=== PATIENT | female | born 1960 | race Caucasian/White ===

== ENCOUNTER → 2016-09-06 | Outpatient (CLI) | payer OTHER | END | disposition home or self-care (01) | LOC: LABWHC1 09:18 | PROVIDERS: ATTEND Internal Medicine Endocrinology, Diabetes & Metabolism | DX: E05.90 Thyrotoxicosis, unspecified without thyrotoxic crisis or storm (principal) | CPT/HCPCS: 36415; 84439; 84443 ==

== ENCOUNTER → 2016-10-15 | Outpatient (CLI) | payer OTHER ==
--- NOTE | 2016-10-15 10:26 | US ---
EXAMINATION TYPE: US venous doppler duplex LE DATE OF EXAM: 10/15/2016 9:32 AM COMPARISON: NONE CLINICAL HISTORY: Leg Pain Swelling I82.401,I82.402 M79.661 M79.662. SIDE PERFORMED: Bilateral VESSELS IMAGED: External Iliac Vein (EIV) Common Femoral Vein Deep Femoral Vein Greater Saphenous Vein * Femoral Vein Popliteal Vein Small Saphenous Vein *-not seen on left Proximal Calf Veins (* superficial vessels) FINDINGS: There is spontaneous flow and normal compressibility of the deep venous structures bilatera nubia. IMPRESSION: 1. No diagnostic evidence of DVT
== END | disposition home or self-care (01) ==
LOC: RADUSWWP 09:29
PROVIDERS: ATTEND Orthopaedic Surgery
DX: R22.43 Localized swelling, mass and lump, lower limb, bilateral (principal); M79.661 Pain in right lower leg
CPT/HCPCS: 93970

== ENCOUNTER → 2016-10-23 | Outpatient (CLI) | payer OTHER ==
[2016-10-23 10:21] LABS: Basophils # (A) 0.1 k/uL (0-0.2); Basophils % (A) 1 %; CH 29.6; CHCM 30.8; Eosinophils # (A) 0.1 k/uL (0-0.7); Eosinophils % (A) 2 %; HCT 43.7 % (34.0-46.0); HDW 2.45; HGB 13.7 gm/dL (11.4-16.0); Hypochromasia Slight; Luc # (Auto) 0.23; Luc % (Auto) 3; Lymphocytes # (A) 1.7 k/uL (1.0-4.8); Lymphocytes % (A) 22 %; MCH 30.3 pg (25.0-35.0); MCHC 31.4 g/dL (31.0-37.0); MCV 96.6 fL (80.0-100.0); Mean Platelet Volume 7.2; Monocytes # (A) 0.3 k/uL (0-1.0); Monocytes % (A) 4 %; Neutrophils # (A) 5.3 k/uL (1.3-7.7); Neutrophils % (A) 68 %; RBC 4.52 m/uL (3.80-5.40); RDW 13.6 % (11.5-15.5); WBC 7.8 k/uL (3.8-10.6); WBC (Perox) 7.49
[2016-10-23 10:25] LABS: Prothrombin Time 10.4 sec (9.0-12.0)
[2016-10-23 10:41] LABS: ALT 53 U/L (9-52); AST 60 U/L (14-36); Alkaline Phosphatase 159 U/L (38-126); Anion Gap 11 mmol/L; Blood Urea Nitrogen 22 mg/dL (7-17); Calcium 10.1 mg/dL (8.4-10.2); Carbon Dioxide 25 mmol/L (22-30); Chloride 106 mmol/L (98-107); Glucose 81 mg/dL (74-99); Non-African American GFR(MDRD) >60 (>60 ml/min/1.73 sqM); Potassium 5.1 mmol/L (3.5-5.1); Sodium 142 mmol/L (137-145); Total Bilirubin 0.7 mg/dL (0.2-1.3); Total Protein 7.6 g/dL (6.3-8.2)
== END | disposition home or self-care (01) ==
LOC: LABWHC1 09:29
PROVIDERS: ATTEND Internal Medicine Gastroenterology
DX: K74.3 Primary biliary cirrhosis (principal)
CPT/HCPCS: 36415; 80053; 82105; 85025; 85610

== ENCOUNTER → 2016-11-14 | Outpatient (CLI) | payer OTHER ==
--- NOTE | 2016-11-18 08:05 | MM ---
Reason for exam: screening (asymptomatic). Last mammogram was performed 1 year ago. History: Patient is postmenopausal. Took hormonal contraceptives for 5 years. Taking estrogen for 6 months. Taking progesterone for 6 months. Taking other hormone for 6 months. Physical Findings: A clinical breast exam by your physician is recommended on an annual basis and results should be correlated with mammographic findings. MG 3D Screening Mammo W/Cad Bilateral CC and MLO view(s) were taken. Prior study comparison: November 05, 2015, bilateral MG 3d screening mammo w/cad. November 03, 2014, bilateral MG screening mammo w CAD. November 01, 2013, bilateral digital screening mammo w/CAD. There are scattered fibroglandular densities. No significant changes when compared with prior studies. ASSESSMENT: Negative, BI-RAD 1 RECOMMENDATION: Routine screening mammogram of both breasts in 1 year.
== END | disposition home or self-care (01) ==
LOC: RADMAMWWP 07:53
PROVIDERS: ATTEND Family Medicine
DX: Z12.31 Encounter for screening mammogram for malignant neoplasm of breast (principal)
CPT/HCPCS: 77063; G0202

== ENCOUNTER → 2016-11-14 | Outpatient (CLI) | payer OTHER ==
--- NOTE | 2016-11-14 09:09 | US ---
EXAMINATION TYPE: US liver DATE OF EXAM: 11/14/2016 8:17 AM COMPARISON: NONE CLINICAL HISTORY: K74.3 BILIARY CIRRHOSIS. ABD pain EXAM MEASUREMENTS: Liver Length: 11.0 cm Gallbladder Wall: 0.3 cm CBD: 0.5 cm Right Kidney: 9.6 x 3.7 x 4.1 cm Pt states she is not NPO, wanted to continue with exam knowing it may be limited Pancreas: Body wnl, head and tail obscured by overlying bowel gas Liver: Heterogeneous Gallbladder: Lumen appeared clear, GB slightly contracted, pt not NPO Evidence for sonographic Dugan's sign: No CBD: wnl Right Kidney: wnl IMPRESSION: NORMAL RIGHT UPPER QUADRANT ULTRASOUND.
== END | disposition home or self-care (01) ==
LOC: RADUSWWP 07:52
PROVIDERS: ATTEND Internal Medicine Gastroenterology
DX: K74.3 Primary biliary cirrhosis (principal)
CPT/HCPCS: 76705

== ENCOUNTER → 2016-12-16 | Outpatient (CLI) | payer OTHER | LOC: LABWHC1 17:08 | PROVIDERS: ATTEND Internal Medicine Endocrinology, Diabetes & Metabolism | DX: E05.90 Thyrotoxicosis, unspecified without thyrotoxic crisis or storm (principal) | CPT/HCPCS: 36415; 84439; 84443 ==

== ENCOUNTER → 2017-04-13 | Outpatient (CLI) | payer OTHER ==
[2017-04-13 08:00] LABS: Basophils % (A) 1 %; CH 31.5; CHCM 33.5; Eosinophils # (A) 0.2 k/uL (0-0.7); Eosinophils % (A) 5 %; HDW 2.44; HGB 13.5 gm/dL (11.4-16.0); Luc # (Auto) 0.12; Luc % (Auto) 3; Lymphocytes # (A) 1.6 k/uL (1.0-4.8); Lymphocytes % (A) 38 %; MCH 30.5 pg (25.0-35.0); MCHC 32.2 g/dL (31.0-37.0); MCV 94.7 fL (80.0-100.0); Mean Platelet Volume 6.9; Monocytes # (A) 0.3 k/uL (0-1.0); Monocytes % (A) 7 %; Neutrophils % (A) 46 %; RBC 4.43 m/uL (3.80-5.40); RDW 13.9 % (11.5-15.5); WBC 4.2 k/uL (3.8-10.6); WBC (Perox) 4.36
[2017-04-13 08:22] LABS: ALT 61 U/L (9-52); AST 70 U/L (14-36); Alkaline Phosphatase 159 U/L (38-126); Anion Gap 8 mmol/L; Blood Urea Nitrogen 15 mg/dL (7-17); Calcium 9.6 mg/dL (8.4-10.2); Carbon Dioxide 26 mmol/L (22-30); Chloride 107 mmol/L (98-107); Glucose 77 mg/dL (74-99); Non-African American GFR(MDRD) >60 (>60 ml/min/1.73 sqM); Potassium 5.1 mmol/L (3.5-5.1); Sodium 141 mmol/L (137-145); Total Bilirubin 0.4 mg/dL (0.2-1.3); Total Protein 7.4 g/dL (6.3-8.2)
== END | disposition home or self-care (01) ==
LOC: LABWHC1 06:53
PROVIDERS: ATTEND Internal Medicine Gastroenterology
DX: K74.3 Primary biliary cirrhosis (principal); E05.90 Thyrotoxicosis, unspecified without thyrotoxic crisis or storm
CPT/HCPCS: 36415; 80053; 82105; 84439; 84443; 84480; 85025; 85610

== ENCOUNTER → 2017-05-09 | Outpatient (CLI) | payer OTHER ==
[2017-05-09 10:42] LABS: Basophils % (A) 1 %; CHCM 32.7; Eosinophils # (A) 0.1 k/uL (0-0.7); Eosinophils % (A) 3 %; HCT 46.4 % (34.0-46.0); HDW 2.38; HGB 14.5 gm/dL (11.4-16.0); Luc % (Auto) 2; Lymphocytes # (A) 1.7 k/uL (1.0-4.8); Lymphocytes % (A) 40 %; MCH 30.7 pg (25.0-35.0); MCHC 31.2 g/dL (31.0-37.0); MCV 98.5 fL (80.0-100.0); Monocytes # (A) 0.3 k/uL (0-1.0); Monocytes % (A) 6 %; Neutrophils # (A) 2.1 k/uL (1.3-7.7); Neutrophils % (A) 48 %; RBC 4.71 m/uL (3.80-5.40); RDW 13.9 % (11.5-15.5); WBC 4.4 k/uL (3.8-10.6); WBC (Perox) 4.28
[2017-05-09 10:50] LABS: ALT 46 U/L (9-52); AST 47 U/L (14-36); Alkaline Phosphatase 169 U/L (38-126); Anion Gap 12 mmol/L; Blood Urea Nitrogen 18 mg/dL (7-17); Calcium 9.8 mg/dL (8.4-10.2); Carbon Dioxide 25 mmol/L (22-30); Chloride 107 mmol/L (98-107); Cholesterol 200 mg/dL (<200); Glucose 81 mg/dL (74-99); HDL Cholesterol 99 mg/dL (40-60); Non-African American GFR(MDRD) >60 (>60 ml/min/1.73 sqM); Potassium 4.5 mmol/L (3.5-5.1); Sodium 144 mmol/L (137-145); Total Bilirubin 0.5 mg/dL (0.2-1.3); Total Protein 8.1 g/dL (6.3-8.2)
== END | disposition home or self-care (01) ==
LOC: LABWHC1 09:45
PROVIDERS: ATTEND Physician Assistant Medical
DX: I10 Essential (primary) hypertension (principal); K74.3 Primary biliary cirrhosis; K21.9 Gastro-esophageal reflux disease without esophagitis
CPT/HCPCS: 36415; 80053; 80061; 84443; 85025

== ENCOUNTER → 2017-08-18 | Outpatient (CLI) | payer OTHER ==
--- NOTE | 2017-08-18 07:44 | US ---
EXAMINATION TYPE: US thyroid st tissue head/neck DATE OF EXAM: 08/18/2017 COMPARISON: NONE CLINICAL HISTORY: E05.90 THYROTOXICOSIS. GLAND SIZE: Right Lobe: 4.5 x 1.1 x 1.6 cm Overall Parenchyma: heterogenous Left Lobe: 4.8 x 1.4 x 1.4 cm Overall Parenchyma: heterogeneous Isthmus Thickness: 0.2 cm NODULES RIGHT: # of nodules measured on right: 0 LEFT: # of nodules measured on left: 0 ISTHMUS: # of nodules measured in the isthmus: 0 Bilateral neck scanned, no evidence of lymphadenopathy. IMPRESSION: Mild glandular heterogeneity without distinct nodule.
== END | disposition home or self-care (01) ==
LOC: RADUSWWP 06:55
PROVIDERS: ATTEND Internal Medicine Endocrinology, Diabetes & Metabolism
DX: E05.90 Thyrotoxicosis, unspecified without thyrotoxic crisis or storm (principal)
CPT/HCPCS: 76536

== ENCOUNTER → 2017-08-22 | Outpatient (CLI) | payer OTHER ==
[2017-08-22 10:14] LABS: T4, Free (Free Thyroxine) 0.92 ng/dL (0.78-2.19)
== END | disposition home or self-care (01) ==
LOC: LABWHC1 09:08
PROVIDERS: ATTEND Internal Medicine Endocrinology, Diabetes & Metabolism
DX: E05.90 Thyrotoxicosis, unspecified without thyrotoxic crisis or storm (principal)
CPT/HCPCS: 36415; 84439; 84443; 84480

== ENCOUNTER → 2017-10-15 | Outpatient (CLI) | payer OTHER ==
[2017-10-15 15:13] LABS: HCT 40.4 % (34.0-46.0); HGB 13.2 gm/dL (11.4-16.0); MCH 29.9 pg (25.0-35.0); MCHC 32.6 g/dL (31.0-37.0); MCV 91.6 fL (80.0-100.0); Mean Platelet Volume 6.9; Platelet Count 331 k/uL (150-450); RBC 4.41 m/uL (3.80-5.40); RDW 12.9 % (11.5-15.5); WBC 7.3 k/uL (3.8-10.6)
[2017-10-15 15:21] LABS: Prothrombin Time 9.6 sec (9.0-12.0)
[2017-10-15 15:25] LABS: ALT 35 U/L (9-52); AST 43 U/L (14-36); Albumin 4.5 g/dL (3.5-5.0); Alkaline Phosphatase 140 U/L (38-126); Anion Gap 8 mmol/L; Blood Urea Nitrogen 22 mg/dL (7-17); Calcium 10.3 mg/dL (8.4-10.2); Carbon Dioxide 29 mmol/L (22-30); Chloride 102 mmol/L (98-107); Glucose 79 mg/dL (74-99); Potassium 4.5 mmol/L (3.5-5.1); Sodium 139 mmol/L (137-145); Total Bilirubin 0.4 mg/dL (0.2-1.3); Total Protein 7.9 g/dL (6.3-8.2)
== END | disposition home or self-care (01) ==
LOC: LABWHC1 14:51
PROVIDERS: ATTEND Internal Medicine Gastroenterology
DX: K74.3 Primary biliary cirrhosis (principal)
CPT/HCPCS: 36415; 80053; 82105; 85027; 85610

== ENCOUNTER → 2017-11-19 | Outpatient (CLI) | payer OTHER ==
[2017-11-19 08:33] LABS: T4, Free (Free Thyroxine) 0.92 ng/dL (0.78-2.19)
== END | disposition home or self-care (01) ==
LOC: LABWHC1 07:09
PROVIDERS: ATTEND Internal Medicine Endocrinology, Diabetes & Metabolism
DX: E05.90 Thyrotoxicosis, unspecified without thyrotoxic crisis or storm (principal)
CPT/HCPCS: 36415; 84439; 84443; 84480

== ENCOUNTER → 2018-02-26 | Outpatient (CLI) | payer OTHER ==
[2018-02-26 10:05] LABS: T4, Free (Free Thyroxine) 0.87 ng/dL (0.78-2.19)
== END | disposition home or self-care (01) ==
LOC: LABWHC1 08:47
PROVIDERS: ATTEND Internal Medicine Endocrinology, Diabetes & Metabolism
DX: E05.90 Thyrotoxicosis, unspecified without thyrotoxic crisis or storm (principal)
CPT/HCPCS: 36415; 84439; 84443; 84480

== ENCOUNTER → 2018-04-17 | Outpatient (CLI) | payer OTHER ==
[2018-04-17 10:35] LABS: HCT 42.3 % (34.0-46.0); HGB 13.5 gm/dL (11.4-16.0); MCH 29.7 pg (25.0-35.0); MCHC 31.8 g/dL (31.0-37.0); MCV 93.5 fL (80.0-100.0); Platelet Count 346 k/uL (150-450); RBC 4.52 m/uL (3.80-5.40); RDW 12.9 % (11.5-15.5); WBC 5.1 k/uL (3.8-10.6)
[2018-04-17 10:44] LABS: ALT 32 U/L (9-52); AST 45 U/L (14-36); Albumin 4.3 g/dL (3.5-5.0); Alkaline Phosphatase 136 U/L (38-126); Anion Gap 10 mmol/L; Blood Urea Nitrogen 23 mg/dL (7-17); Calcium 10.1 mg/dL (8.4-10.2); Carbon Dioxide 26 mmol/L (22-30); Chloride 105 mmol/L (98-107); Glucose 88 mg/dL (74-99); Potassium 4.9 mmol/L (3.5-5.1); Sodium 141 mmol/L (137-145); Total Bilirubin 0.5 mg/dL (0.2-1.3); Total Protein 7.6 g/dL (6.3-8.2)
== END ==
LOC: LABWHC1 09:51
PROVIDERS: ATTEND Internal Medicine Gastroenterology
DX: K74.3 Primary biliary cirrhosis (principal)
CPT/HCPCS: 36415; 80053; 82105; 85027; 85610

== ENCOUNTER → 2018-05-11 | Outpatient (CLI) | payer OTHER ==
[2018-05-11 12:51] LABS: Basophils % (A) 1 %; Eosinophils # (A) 0.2 k/uL (0-0.7); Eosinophils % (A) 3 %; HCT 39.7 % (34.0-46.0); Lymphocytes # (A) 1.8 k/uL (1.0-4.8); Lymphocytes % (A) 28 %; MCH 30.4 pg (25.0-35.0); MCHC 32.7 g/dL (31.0-37.0); MCV 92.9 fL (80.0-100.0); Mean Platelet Volume 6.7; Monocytes # (A) 0.4 k/uL (0-1.0); Monocytes % (A) 6 %; Neutrophils # (A) 3.9 k/uL (1.3-7.7); Neutrophils % (A) 61 %; Platelet Count 335 k/uL (150-450); RBC 4.27 m/uL (3.80-5.40); RDW 13.5 % (11.5-15.5); WBC 6.4 k/uL (3.8-10.6)
== END ==
LOC: LABWHC1 10:47
PROVIDERS: ATTEND Physician Assistant Medical
DX: I10 Essential (primary) hypertension (principal); E66.9 Obesity, unspecified; E05.90 Thyrotoxicosis, unspecified without thyrotoxic crisis or storm
CPT/HCPCS: 36415; 80061; 84443; 85025

== ENCOUNTER → 2018-06-23 | Outpatient (CLI) | payer OTHER ==
[2018-06-23 13:02] LABS: T4, Free (Free Thyroxine) 1.1 ng/dL (0.80-1.80)
== END | disposition home or self-care (01) ==
LOC: LABWHC1 07:07
PROVIDERS: ATTEND Internal Medicine Endocrinology, Diabetes & Metabolism
DX: E05.00 Thyrotoxicosis with diffuse goiter without thyrotoxic crisis or storm (principal)
CPT/HCPCS: 36415; 84439; 84443; 84480

== ENCOUNTER → 2018-10-15 | Outpatient (CLI) | payer OTHER ==
[2018-10-15 10:40] LABS: HCT 39.9 % (34.0-46.0); MCH 30.5 pg (25.0-35.0); MCHC 32.6 g/dL (31.0-37.0); MCV 93.3 fL (80.0-100.0); Platelet Count 323 k/uL (150-450); RBC 4.28 m/uL (3.80-5.40); RDW 12.9 % (11.5-15.5); WBC 5.4 k/uL (3.8-10.6)
[2018-10-15 16:57] LABS: Albumin 4.2 g/dL (3.80-4.90); Albumin/Globulin Ratio 1.68 (1.60-3.17); Anion Gap 11.8 mmol/L (4.00-12.00); Calcium 9.5 mg/dL (8.7-10.3); Carbon Dioxide 27.2 mmol/L (21.6-31.8); Globulin 2.5 g/dL (1.6-3.3); Potassium 4.3 mmol/L (3.5-5.5); Total Bilirubin 0.4 mg/dL (0.2-1.2); Total Protein 6.7 g/dL (6.2-8.2)
== END | disposition home or self-care (01) ==
LOC: LABWHC1 09:44
PROVIDERS: ATTEND Internal Medicine Gastroenterology
DX: K74.3 Primary biliary cirrhosis (principal)
CPT/HCPCS: 36415; 80053; 82105; 85027

== ENCOUNTER → 2018-11-26 | Outpatient (CLI) | payer OTHER ==
[2018-11-26 18:44] LABS: T4, Free (Free Thyroxine) 1.1 ng/dL (0.80-1.80)
== END | disposition home or self-care (01) ==
LOC: LABWHC1 12:22
PROVIDERS: ATTEND Internal Medicine Endocrinology, Diabetes & Metabolism
DX: E05.00 Thyrotoxicosis with diffuse goiter without thyrotoxic crisis or storm (principal)
CPT/HCPCS: 36415; 84439; 84443; 84480

== ENCOUNTER → 2018-12-17 | Outpatient (CLI) | payer OTHER ==
--- NOTE | 2018-12-21 13:47 | MM ---
Reason for exam: screening (asymptomatic). Last mammogram was performed 1 year and 1 month ago. History: Patient is postmenopausal. Took hormonal contraceptives for 5 years. Took estrogen for 6 months. Took progesterone for 6 months. Taking other hormone for 6 months. Physical Findings: A clinical breast exam by your physician is recommended on an annual basis and results should be correlated with mammographic findings. MG 3D Screening Mammo W/Cad Bilateral CC and MLO view(s) were taken. Prior study comparison: November 19, 2017, bilateral MG 3d screening mammo w/cad. November 14, 2016, bilateral MG 3d screening mammo w/cad. There are scattered fibroglandular densities. No significant changes when compared with prior studies. ASSESSMENT: Benign, BI-RAD 2 RECOMMENDATION: Routine screening mammogram of both breasts in 1 year.
== END | disposition home or self-care (01) ==
LOC: RADMAMWWP 07:04
PROVIDERS: ATTEND Family Medicine
DX: Z12.31 Encounter for screening mammogram for malignant neoplasm of breast (principal)
CPT/HCPCS: 77063; 77067

== ENCOUNTER → 2019-04-09 | Outpatient (CLI) | payer OTHER ==
[2019-04-09 09:56] LABS: Basophils # (A) 0.1 k/uL (0-0.2); Basophils % (A) 1 %; Eosinophils # (A) 0.2 k/uL (0-0.7); Eosinophils % (A) 4 %; HGB 13.1 gm/dL (11.4-16.0); Lymphocytes # (A) 2.1 k/uL (1.0-4.8); Lymphocytes % (A) 35 %; MCH 29.6 pg (25.0-35.0); MCV 92.3 fL (80.0-100.0); Mean Platelet Volume 6.9; Monocytes # (A) 0.3 k/uL (0-1.0); Monocytes % (A) 5 %; Neutrophils # (A) 3.1 k/uL (1.3-7.7); Neutrophils % (A) 53 %; Platelet Count 328 k/uL (150-450); RBC 4.44 m/uL (3.80-5.40); RDW 14.4 % (11.5-15.5); WBC 5.8 k/uL (3.8-10.6)
[2019-04-09 10:03] LABS: INR 0.9 (<1.2); Prothrombin Time 9.7 sec (9.0-12.0)
[2019-04-09 16:16] LABS: Alpha Fetoprotein, Tumor Mkr 5.5 ng/mL (0.0-7.9)
[2019-04-09 16:25] LABS: African American GFR (CKD) 94.9 (60.0-200.0); Albumin 4.2 g/dL (3.80-4.90); Albumin/Globulin Ratio 1.68 (1.60-3.17); Anion Gap 8.5 mmol/L (4.00-12.00); BUN/Creat Ratio 21.25 Ratio (12.00-20.00); Calcium 9.6 mg/dL (8.7-10.3); Carbon Dioxide 29.5 mmol/L (21.6-31.8); Globulin 2.5 g/dL (1.6-3.3); Potassium 4.3 mmol/L (3.5-5.5); T4, Free (Free Thyroxine) 0.8 ng/dL (0.80-1.80); Total Bilirubin 0.4 mg/dL (0.2-1.2); Total Protein 6.7 g/dL (6.2-8.2)
== END | disposition home or self-care (01) ==
LOC: LABWHC1 09:20
PROVIDERS: ATTEND Internal Medicine Gastroenterology
DX: E05.00 Thyrotoxicosis with diffuse goiter without thyrotoxic crisis or storm (principal); K74.3 Primary biliary cirrhosis
CPT/HCPCS: 36415; 80053; 82105; 84439; 84443; 84480; 85025; 85610

== ENCOUNTER → 2019-05-21 | Outpatient (CLI) | payer OTHER ==
[2019-05-21 09:07] LABS: Basophils # (A) 0.1 k/uL (0-0.2); Basophils % (A) 1 %; Eosinophils # (A) 0.2 k/uL (0-0.7); Eosinophils % (A) 3 %; HCT 42.2 % (34.0-46.0); Lymphocytes % (A) 37 %; MCH 30.5 pg (25.0-35.0); MCHC 33.1 g/dL (31.0-37.0); MCV 92.3 fL (80.0-100.0); Mean Platelet Volume 5.7; Monocytes # (A) 0.3 k/uL (0-1.0); Monocytes % (A) 6 %; Neutrophils # (A) 2.7 k/uL (1.3-7.7); Neutrophils % (A) 51 %; Platelet Count 348 k/uL (150-450); RBC 4.58 m/uL (3.80-5.40); RDW 12.9 % (11.5-15.5); WBC 5.3 k/uL (3.8-10.6)
[2019-05-21 16:14] LABS: African American GFR (CKD) 94.2 (60.0-200.0); Albumin 4.4 g/dL (3.80-4.90); Albumin/Globulin Ratio 1.83 (1.60-3.17); Anion Gap 9.2 mmol/L (4.00-12.00); BUN/Creat Ratio 17.5 Ratio (12.00-20.00); Calcium 9.7 mg/dL (8.7-10.3); Carbon Dioxide 29.8 mmol/L (21.6-31.8); Chol/HDL Ratio 2.31; Globulin 2.4 g/dL (1.6-3.3); LDL Cholesterol,Calculated 102.4 mg/dL (0.0-131.0); Potassium 4.7 mmol/L (3.5-5.5); Total Bilirubin 0.5 mg/dL (0.2-1.2); Total Protein 6.8 g/dL (6.2-8.2); VLDL Calculation 11.6 mg/dL (5.00-40.00)
== END | disposition home or self-care (01) ==
LOC: LABWHC1 08:47
PROVIDERS: ATTEND Family Medicine
DX: I10 Essential (primary) hypertension (principal); K21.9 Gastro-esophageal reflux disease without esophagitis; K74.3 Primary biliary cirrhosis; E05.90 Thyrotoxicosis, unspecified without thyrotoxic crisis or storm; E55.9 Vitamin D deficiency, unspecified
CPT/HCPCS: 36415; 80053; 80061; 82306; 84443; 85025

== ENCOUNTER → 2019-06-20 | Outpatient (CLI) | payer OTHER ==
--- NOTE | 2019-06-20 08:59 | US ---
EXAMINATION TYPE: US liver DATE OF EXAM: 06/20/2019 COMPARISON: 11/14/2016 CLINICAL HISTORY: 59-year-old female K74.3 PRIMARY BILIARY CIRRHOSIS. NPO, No pain TECHNIQUE: Multiple sonographic images of the right upper quadrant are obtained. FINDINGS: EXAM MEASUREMENTS: Liver Length: 14.2 cm Gallbladder Wall: 0.2 cm CBD: 0.5 cm Right Kidney: 9.4 x 4.6 x 4.1 cm [employer]employment [employer] Adjudicator notes:Limited due to overlying bowel gas Pancreas: Tail obscured by overlying bowel gas. Visualized portions show no gross abnormal mobility. Liver: Very slightly heterogeneous. No focal lesion seen. Gallbladder: wnl Evidence for sonographic Dugan's sign: neg CBD: wnl Right Kidney: Mild pelviectasis or a small 1.1 cm parapelvic cyst. No hydronephrosis. IMPRESSION: 1. Some limitations due to overlying bowel gas. 2. Slightly heterogeneous appearance to the liver. No focal lesion seen. 3. No cholelithiasis or biliary ductal dilatation.
== END ==
LOC: RADUSWWP 07:07
PROVIDERS: ATTEND Internal Medicine Gastroenterology
DX: R93.2 Abnormal findings on diagnostic imaging of liver and biliary tract (principal)
CPT/HCPCS: 76705

== ENCOUNTER → 2019-08-20 | Outpatient (CLI) | payer OTHER | END | disposition home or self-care (01) | LOC: LABWHC1 09:09 | PROVIDERS: ATTEND Internal Medicine Endocrinology, Diabetes & Metabolism | DX: E05.00 Thyrotoxicosis with diffuse goiter without thyrotoxic crisis or storm (principal) | CPT/HCPCS: 36415; 84439; 84443; 84480 ==

== ENCOUNTER → 2020-01-09 | Outpatient (CLI) | payer OTHER ==
[2020-01-09 08:06] LABS: Basophils % (A) 1 %; Eosinophils # (A) 0.2 k/uL (0-0.7); Eosinophils % (A) 3 %; HCT 41.8 % (34.0-46.0); HGB 13.3 gm/dL (11.4-16.0); Lymphocytes # (A) 1.9 k/uL (1.0-4.8); Lymphocytes % (A) 32 %; MCH 29.3 pg (25.0-35.0); MCHC 31.9 g/dL (31.0-37.0); MCV 91.7 fL (80.0-100.0); Monocytes # (A) 0.3 k/uL (0-1.0); Monocytes % (A) 5 %; Neutrophils # (A) 3.5 k/uL (1.3-7.7); Neutrophils % (A) 58 %; Platelet Count 320 k/uL (150-450); RBC 4.55 m/uL (3.80-5.40); RDW 13.8 % (11.5-15.5)
[2020-01-09 08:09] LABS: INR 0.9 (<1.2); Prothrombin Time 9.4 sec (9.0-12.0)
[2020-01-09 11:50] LABS: African American GFR (CKD) 94.2 (60.0-200.0); Albumin 4.1 g/dL (3.80-4.90); Albumin/Globulin Ratio 1.52 (1.60-3.17); Anion Gap 7.5 mmol/L (4.00-12.00); Calcium 9.4 mg/dL (8.7-10.3); Carbon Dioxide 27.5 mmol/L (21.6-31.8); Globulin 2.7 g/dL (1.6-3.3); Non-African American GFR(CKD) 81.3 (60.0-200.0); Potassium 4.2 mmol/L (3.5-5.5); Total Bilirubin 0.5 mg/dL (0.3-1.2); Total Protein 6.8 g/dL (6.2-8.2)
== END | disposition home or self-care (01) ==
LOC: LABWHC1 07:07
PROVIDERS: ATTEND Nurse Practitioner
DX: K74.3 Primary biliary cirrhosis (principal)
CPT/HCPCS: 36415; 80053; 82105; 85025; 85610

== ENCOUNTER → 2020-01-26 | Outpatient (CLI) | payer OTHER ==
[2020-01-26 07:47] LABS: Basophils % (A) 1 %; Eosinophils # (A) 0.3 k/uL (0-0.7); Eosinophils % (A) 4 %; HCT 44.5 % (34.0-46.0); HGB 14.1 gm/dL (11.4-16.0); Lymphocytes # (A) 2.1 k/uL (1.0-4.8); Lymphocytes % (A) 36 %; MCH 28.8 pg (25.0-35.0); MCHC 31.6 g/dL (31.0-37.0); MCV 91.1 fL (80.0-100.0); Mean Platelet Volume 6.7; Monocytes # (A) 0.3 k/uL (0-1.0); Monocytes % (A) 6 %; Neutrophils % (A) 51 %; Platelet Count 322 k/uL (150-450); RBC 4.89 m/uL (3.80-5.40); RDW 13.8 % (11.5-15.5); WBC 5.9 k/uL (3.8-10.6)
[2020-01-26 11:32] LABS: ALT 33 U/L (8-44); AST 44 U/L (13-35); African American GFR (CKD) 81.7 (60.0-200.0); Albumin/Globulin Ratio 1.43 (1.60-3.17); Alkaline Phosphatase 171 U/L (41-126); BUN/Creat Ratio 12.22 Ratio (12.00-20.00); Calcium 9.6 mg/dL (8.7-10.3); Carbon Dioxide 32.5 mmol/L (21.6-31.8); Chloride 101 mmol/L (96-109); Chol/HDL Ratio 2.11; Cholesterol 188 mg/dL (0-200); Glucose 93 mg/dL (70-110); Non-African American GFR(CKD) 70.5 (60.0-200.0); Potassium 4.6 mmol/L (3.5-5.5); Sodium 141 mmol/L (135-145); Total Bilirubin 0.5 mg/dL (0.2-1.2); Total Protein 7.3 g/dL (6.2-8.2); Triglycerides <50.0 mg/dL (0.0-149.0)
== END | disposition home or self-care (01) ==
LOC: LABWHC1 07:03
PROVIDERS: ATTEND Physician Assistant Medical
DX: I10 Essential (primary) hypertension (principal); K21.9 Gastro-esophageal reflux disease without esophagitis; K74.3 Primary biliary cirrhosis; E05.90 Thyrotoxicosis, unspecified without thyrotoxic crisis or storm; E55.9 Vitamin D deficiency, unspecified
CPT/HCPCS: 36415; 80053; 80061; 82306; 84443; 85025

== ENCOUNTER 2020-01-27 10:40 | Day surgery (SDC) | payer OTHER ==
[2020-01-25 15:11] VITALS: BMI 35.4
[~2020-01-27 10:40] MED LIST: LIDOCAINE 1% (10MG/ML) FOR IV START INTRADERMA PRN
[2020-01-27 11:07] VITALS: RESP 18; TEMP 98.3
[2020-01-27] MEDS: LACTATED RINGERS 1,000 ML IV SCH ×2 (11:22→11:25)
[2020-01-27] MEDS ORDERED: PROPOFOL 10 MG/ML 20 ML VIAL IV ONE (11:26)
[2020-01-27] MEDS ORDERED: LIDOCAINE 1% INJ 10MG/ML (20 ML MDV) ONE (11:26)
--- NOTE | 2020-01-27 11:37 | P.PCN ---
Date of Procedure: 01/27/20 Procedure(s) Performed: BRIEF HISTORY: Patient is a 59-year-old, pleasant, white female scheduled for an upper endoscopy as a part of evaluation of GERD/intermittent dysphagia to solids as well as screening for esophageal varices for an underlying history of primary biliary cholangitis. PROCEDURE PERFORMED: Esophagogastroduodenoscopy with biopsy. PREOPERATIVE DIAGNOSIS: GERD/dysphagia/history of PBC. IV sedation per anesthesia. PROCEDURE: After informed consent was obtained, the patient was brought into the endoscopy unit. IV sedation was administered by Anesthesia under continuous monitoring. Initially the Olympus GIF-140 video endoscope was inserted into the mouth. Esophagus intubated without any difficulty. It was gradually advanced into the stomach and duodenum and carefully examined. The bulb and the second part of the duodenum appeared normal. The scope at this time was withdrawn to the stomach, adequately insufflated with air, and upon careful examination, mucosa of the antrum, had scattered erosions and biopsies were done from this area. Small sliding type hiatal hernia noted. The body, cardia and the fundus appeared normal. The scope was then withdrawn into the esophagus. The GE junction was located at 37 cm from the incisors. The esophagus appeared normal. There were no erosions or ulcerations seen and the patient tolerated the procedure well. IMPRESSION: 1. Small sliding-type valve and the. 2. Antral erosive gastritis. 3. Widely patent distal esophageal Schatzki's ring. RECOMMENDATIONS: The findings of this examination were discussed with the patient as well as a family. She was advised to follow with the biopsy results. She will use [id number] H2 blockers as needed for reflux symptoms..
[2020-01-27 11:58] VITALS: BP 126/78; PULSE 75
== END 2020-01-27 12:10 | disposition home or self-care (01) ==
LOC: ORWHC2ENDO 10:40
PROVIDERS: ATTEND Internal Medicine Gastroenterology
DX: K29.50 Unspecified chronic gastritis without bleeding (principal); K22.2 Esophageal obstruction; K44.9 Diaphragmatic hernia without obstruction or gangrene; K21.9 Gastro-esophageal reflux disease without esophagitis; K25.9 Gastric ulcer, unspecified as acute or chronic, without hemorrhage or perforation; I10 Essential (primary) hypertension; K74.3 Primary biliary cirrhosis; Z79.899 Other long term (current) drug therapy; Z88.2 Allergy status to sulfonamides; Z88.0 Allergy status to penicillin
CPT/HCPCS: 88305; 43239; J2001; J2704

== ENCOUNTER → 2020-05-14 | Outpatient (CLI) | payer OTHER ==
--- NOTE | 2020-05-14 11:47 | XR ---
EXAMINATION TYPE: XR cervical spine comp DATE OF EXAM: 05/14/2020 COMPARISON: NONE HISTORY: Pain TECHNIQUE: Four views are submitted. FINDINGS: The odontoid is intact. There are no compression deformities. The prevertebral soft tissue structur es are within normal limits. There is degenerative change involving the lower cervical spine with mo derate changes at C4-5 and severe changes at C5-6 and C6-C7. Foraminal encroachment at these 2 levels suspected. Loss of the normal cervical lordosis. IMPRESSION: 1. Multilevel severe degenerative disc disease with facet arthropathy and foraminal encroachment susp ected at C5-6 and C6-C7. Correlate with MRI as clinically warranted..
== END | disposition home or self-care (01) ==
LOC: RADXRYALE 11:14
PROVIDERS: ATTEND Physician Assistant Medical
DX: M50.322 Other cervical disc degeneration at C5-C6 level (principal); M47.812 Spondylosis without myelopathy or radiculopathy, cervical region
CPT/HCPCS: 72050

== ENCOUNTER → 2020-06-13 | Outpatient (CLI) | payer OTHER ==
--- NOTE | 2020-06-14 05:51 | BD ---
EXAMINATION TYPE: Axial Bone Density DATE OF EXAM: 06/13/2020 COMPARISON: NONE CLINICAL HISTORY: 60 YR OLD FEMALE.....ICD-10 CODE: E21.3 HYPERPARATHYROID, Height: 62.5 Weight: 222 FRAX RISK QUESTIONS: History of Fracture in Adulthood: YES RISK FACTORS HISTORY OF: History of Wrist Fracture: LT WRIST AN ADULT Postmenopausal woman: YES AT 52 YRS OLD Hyperparathyroidism: YES Adrenal Insufficiency: NO MEDICATIONS: Thyroid Medications: STOPPED MAR 2020 Additional Medications: BP MEDS, REFLUX MEDS, VIT D Additional History: HYPERTENSION, REFLUX EXAM MEASUREMENTS: Bone mineral densitometry was performed using the [email or web address] System. Bone mineral density as measured about the Lumbar spine is: ----- L1-L4(G/cm2): 1.372 T Score Values are as follows: ----- L1: 1.3 ----- L2: 2.4 ----- L3: 2.3 ----- L4: 0.7 ----- L1-L4: 1.6 Bone mineral density FIRST BONE DENSITY AT [facility] Bone mineral density about the R hip (g/cm2): 1.179 Bone mineral density about the L hip (g/cm2): 1.201 T Score values are as follows: -----R Neck: 1.0 -----L Neck: 0.9 -----R Total: 1.4 -----L Total: 1.5 Bone mineral density FIRST BONE DENSITY AT [facility] FRAX%s: THERE IS A 8.2% CHANCE FOR A MAJOR OSTEOPOROTIC FX AND A 0.1% FOR HIP......PROBABILITY FOR FX IN 10 YRS TIME IMPRESSION: Normal (Values between +1 and -1 indicate normal bone mass). Consider repeating this study in 5 year s or sooner if there is some new clinical indication. NOTE: T-SCORE=SD OF THE YOUNG ADULT MEAN.
== END | disposition home or self-care (01) ==
LOC: RADMAMWWP 07:06
PROVIDERS: ATTEND Family Medicine
DX: E21.3 Hyperparathyroidism, unspecified (principal)
CPT/HCPCS: 77080

== ENCOUNTER → 2020-06-13 | Outpatient (CLI) | payer OTHER ==
--- NOTE | 2020-06-13 07:50 | US ---
EXAMINATION TYPE: US liver DATE OF EXAM: 06/13/2020 COMPARISON: 06/20/2019 CLINICAL HISTORY: 60-year-old female K74.3 Primary Biliary cholangitis. Patient states no symptoms or abdominal surgeries. TECHNIQUE: Multiple sonographic images of the right upper quadrant are obtained. FINDINGS: EXAM MEASUREMENTS: Liver Length: 14.5 cm Gallbladder Wall: 0.2 cm CBD: 0.4 cm Right Kidney: 9.0 x 3.[address] Department notes:Difficult and limited study due to patient body habitus Pancreas: Suboptimal visualization of the pancreatic tail due to shadowing from bowel gas. Visualize d portions show no gross abnormality. Liver: heterogeneous echotexture. No focal lesion seen. Gallbladder: wnl Evidence for sonographic Dugan's sign: no CBD: visualized portions wnl, limited by overlying bowel gas Right Kidney: wnl IMPRESSION: Technically difficult exam. Heterogeneous liver parenchyma suggests underlying hepatocellular disease . No focal lesion clearly identified. No biliary ductal dilatation.
--- NOTE | 2020-06-14 11:21 | MM ---
Reason for exam: screening (asymptomatic). Last mammogram was performed 1 year and 6 months ago. History: Patient is postmenopausal. Took hormonal contraceptives for 5 years. Took estrogen for 6 months. Took progesterone for 6 months. Taking other hormone for 6 months. Physical Findings: A clinical breast exam by your physician is recommended on an annual basis and results should be correlated with mammographic findings. MG 3D Screening Mammo W/Cad Bilateral CC and MLO view(s) were taken. XCCL view(s) were taken of the left breast. Prior study comparison: December 17, 2018, bilateral MG 3d screening mammo w/cad. November 19, 2017, bilateral MG 3d screening mammo w/cad. There are scattered fibroglandular densities. No significant changes when compared with prior studies. ASSESSMENT: Benign, BI-RAD 2 RECOMMENDATION: Routine screening mammogram of both breasts in 1 year.
== END | disposition home or self-care (01) ==
LOC: RADUSWWP 07:03
PROVIDERS: ATTEND Internal Medicine Gastroenterology
DX: Z12.31 Encounter for screening mammogram for malignant neoplasm of breast (principal); R93.2 Abnormal findings on diagnostic imaging of liver and biliary tract; K74.3 Primary biliary cirrhosis
CPT/HCPCS: 76705; 77063; 77067

== ENCOUNTER → 2020-06-15 | Outpatient (CLI) | payer OTHER ==
[2020-06-15 07:40] LABS: Basophils # (A) 0.1 k/uL (0-0.2); Basophils % (A) 1 %; Eosinophils # (A) 0.3 k/uL (0-0.7); Eosinophils % (A) 5 %; HCT 41.7 % (34.0-46.0); HGB 13.8 gm/dL (11.4-16.0); Lymphocytes # (A) 1.7 k/uL (1.0-4.8); Lymphocytes % (A) 32 %; MCH 29.1 pg (25.0-35.0); MCHC 33.1 g/dL (31.0-37.0); MCV 87.8 fL (80.0-100.0); Mean Platelet Volume 6.6; Monocytes # (A) 0.3 k/uL (0-1.0); Monocytes % (A) 6 %; Neutrophils % (A) 54 %; Platelet Count 341 k/uL (150-450); RBC 4.74 m/uL (3.80-5.40); RDW 13.3 % (11.5-15.5); WBC 5.5 k/uL (3.8-10.6)
[2020-06-15 11:08] LABS: T4, Free (Free Thyroxine) 0.9 ng/dL (0.80-1.80)
[2020-06-15 11:47] LABS: African American GFR (CKD) 81.1 (60.0-200.0); Albumin 4.1 g/dL (3.80-4.90); Albumin/Globulin Ratio 1.41 (1.60-3.17); Anion Gap 10.2 mmol/L (4.00-12.00); BUN/Creat Ratio 16.67 Ratio (12.00-20.00); Calcium 9.6 mg/dL (8.7-10.3); Carbon Dioxide 28.8 mmol/L (21.6-31.8); Globulin 2.9 g/dL (1.6-3.3); Potassium 3.7 mmol/L (3.5-5.5); Total Bilirubin 0.4 mg/dL (0.2-1.2)
[2020-06-16 04:08] LABS: INR 0.93 (0.90-1.11); Prothrombin Time 10.1 sec (9.9-11.9)
== END | disposition home or self-care (01) ==
LOC: LABWHC1 07:04
PROVIDERS: ATTEND Nurse Practitioner
DX: K74.3 Primary biliary cirrhosis (principal)
CPT/HCPCS: 36415; 80053; 82105; 82306; 84439; 84443; 84590; 85025; 85610

== ENCOUNTER → 2020-09-17 | Outpatient (CLI) | payer OTHER ==
[2020-09-17 11:16] LABS: Basophils # (A) 0.04 X 10*3/uL (0.00-0.10); Basophils % (A) 0.7 %; Eosinophils # (A) 0.37 X 10*3/uL (0.04-0.35); Eosinophils % (A) 6.1 %; HCT 38.8 % (37.2-46.3); HGB 12.6 g/dL (12.0-15.0); Lymphocytes # (A) 1.95 X 10*3/uL (0.90-5.00); Lymphocytes % (A) 32.1 %; MCH 27.9 pg (27.0-32.0); MCHC 32.5 g/dL (32.0-37.0); MCV 85.8 fL (80.0-97.0); Mean Platelet Volume 9.3 fL (9.5-12.2); Monocytes # (A) 0.54 X 10*3/uL (0.20-1.00); Monocytes % (A) 8.9 %; Neutrophils # (A) 3.14 X 10*3/uL (1.80-7.70); Neutrophils % (A) 51.7 %; Platelet Count 310 X 10*3/uL (140-440); RBC 4.52 X 10*6/uL (4.10-5.20); RDW 14.6 % (11.5-14.5); WBC 6.07 X 10*3/uL (4.50-10.00)
[2020-09-17 11:34] LABS: African American GFR (CKD) 109.9 (60.0-200.0); Albumin 4.4 g/dL (3.80-4.90); Albumin/Globulin Ratio 1.47 (1.60-3.17); Anion Gap 6.3 mmol/L (4.00-12.00); BUN/Creat Ratio 22.86 Ratio (12.00-20.00); Calcium 9.1 mg/dL (8.7-10.3); Carbon Dioxide 31.7 mmol/L (21.6-31.8); Chol/HDL Ratio 2.41; LDL Cholesterol,Calculated 91.4 mg/dL (0.0-131.0); Non-African American GFR(CKD) 94.8 (60.0-200.0); Total Bilirubin 0.5 mg/dL (0.3-1.2); Total Protein 7.4 g/dL (6.2-8.2); VLDL Calculation 12.6 mg/dL (5.00-40.00)
== END | disposition home or self-care (01) ==
LOC: LABWHC1 07:25
PROVIDERS: ATTEND Physician Assistant Medical
DX: I10 Essential (primary) hypertension (principal); K21.9 Gastro-esophageal reflux disease without esophagitis; K74.3 Primary biliary cirrhosis; E05.90 Thyrotoxicosis, unspecified without thyrotoxic crisis or storm; E55.9 Vitamin D deficiency, unspecified
CPT/HCPCS: 36415; 80053; 80061; 84443; 85025

== ENCOUNTER → 2020-11-12 | Outpatient (CLI) | payer OTHER ==
--- NOTE | 2020-11-12 13:51 | US ---
EXAMINATION TYPE: US liver DATE OF EXAM: 11/12/2020 COMPARISON: Ultrasound liver June 13, 2020 and older ultrasound CLINICAL HISTORY: K74.3 Primary biliary cirrhosis. EXAM MEASUREMENTS: Liver Length: 13.2 cm Gallbladder Wall: 0.2 cm CBD: 0.4 cm Right Kidney: 9.8 x 3.7 x 5.1 cm Exam limited due to body habitus. Pancreas: Tail obscured by overlying bowel gas Liver: heterogeneous Gallbladder: wnl Evidence for sonographic Dugan's sign: no CBD: wnl Right Kidney: No hydronephrosis or masses seen Visualized pancreas unremarkable. Visualized liver remains heterogeneous. Evaluation for focal masses suboptimal due to the heterogeneity. No new biliary dilatation. Gallbladder and right kidney unremar kable. IMPRESSION: Suboptimal study. Persistent heterogeneous liver consistent with underlying hepatocellula r disease. No new ascites or biliary dilatation.
== END | disposition home or self-care (01) ==
LOC: RADUSWWP 07:15
PROVIDERS: ATTEND Internal Medicine Gastroenterology
DX: R93.2 Abnormal findings on diagnostic imaging of liver and biliary tract (principal); K74.3 Primary biliary cirrhosis
CPT/HCPCS: 76705

== ENCOUNTER → 2020-12-07 | Outpatient (CLI) | payer OTHER ==
[2020-12-07 11:46] LABS: Basophils # (A) 0.03 X 10*3/uL (0.00-0.10); Basophils % (A) 0.5 %; Eosinophils # (A) 0.43 X 10*3/uL (0.04-0.35); Eosinophils % (A) 7.5 %; HCT 38.3 % (37.2-46.3); HGB 12.3 g/dL (12.0-15.0); Lymphocytes # (A) 1.92 X 10*3/uL (0.90-5.00); Lymphocytes % (A) 33.7 %; MCH 27.3 pg (27.0-32.0); MCHC 32.1 g/dL (32.0-37.0); MCV 85.1 fL (80.0-97.0); Mean Platelet Volume 9.9 fL (9.5-12.2); Monocytes # (A) 0.48 X 10*3/uL (0.20-1.00); Monocytes % (A) 8.4 %; Neutrophils # (A) 2.81 X 10*3/uL (1.80-7.70); Neutrophils % (A) 49.4 %; Platelet Count 314 X 10*3/uL (140-440); RDW 14.6 % (11.5-14.5)
[2020-12-07 13:07] LABS: African American GFR (CKD) 93.5 (60.0-200.0); Albumin 4.1 g/dL (3.80-4.90); Albumin/Globulin Ratio 1.46 (1.60-3.17); Anion Gap 11.6 mmol/L (4.00-12.00); BUN/Creat Ratio 17.5 Ratio (12.00-20.00); Calcium 9.2 mg/dL (8.7-10.3); Carbon Dioxide 25.4 mmol/L (21.6-31.8); Globulin 2.8 g/dL (1.6-3.3); Non-African American GFR(CKD) 80.7 (60.0-200.0); Total Bilirubin 0.5 mg/dL (0.3-1.2); Total Protein 6.9 g/dL (6.2-8.2)
== END | disposition home or self-care (01) ==
LOC: LABWHC1 07:09
PROVIDERS: ATTEND Nurse Practitioner
DX: K74.3 Primary biliary cirrhosis (principal)
CPT/HCPCS: 36415; 80053; 82105; 85025

== ENCOUNTER → 2021-03-19 | Outpatient (CLI) | payer OTHER ==
[2021-03-19 14:50] LABS: Basophils # (A) 0.04 X 10*3/uL (0.00-0.10); Basophils % (A) 0.8 %; Eosinophils # (A) 0.34 X 10*3/uL (0.04-0.35); Eosinophils % (A) 7.1 %; HCT 33.1 % (37.2-46.3); HGB 10.2 g/dL (12.0-15.0); Lymphocytes # (A) 1.38 X 10*3/uL (0.90-5.00); Lymphocytes % (A) 28.8 %; MCH 25.6 pg (27.0-32.0); MCHC 30.8 g/dL (32.0-37.0); MCV 83.2 fL (80.0-97.0); Monocytes # (A) 0.42 X 10*3/uL (0.20-1.00); Monocytes % (A) 8.8 %; Neutrophils # (A) 2.59 X 10*3/uL (1.80-7.70); Neutrophils % (A) 54.1 %; Platelet Count 300 X 10*3/uL (140-440); RBC 3.98 X 10*6/uL (4.10-5.20); RDW 15.7 % (11.5-14.5); WBC 4.79 X 10*3/uL (4.50-10.00)
[2021-03-19 16:16] LABS: % Iron Saturation 12.25 (12.00-45.00); Ferritin 10.9 ng/mL (10.0-291.0); T4, Free (Free Thyroxine) 0.9 ng/dL (0.80-1.80)
== END | disposition home or self-care (01) ==
LOC: LABWHC1 07:08
PROVIDERS: ATTEND Physician Assistant Medical
DX: E07.9 Disorder of thyroid, unspecified (principal); D64.9 Anemia, unspecified
CPT/HCPCS: 36415; 82728; 83540; 83550; 84439; 84443; 85025

== ENCOUNTER → 2021-04-18 | Outpatient (CLI) | payer OTHER ==
[2021-04-18 11:04] LABS: Basophils # (A) 0.03 X 10*3/uL (0.00-0.10); Basophils % (A) 0.6 %; Eosinophils # (A) 0.38 X 10*3/uL (0.04-0.35); HGB 11.8 g/dL (12.0-15.0); Lymphocytes # (A) 1.76 X 10*3/uL (0.90-5.00); Lymphocytes % (A) 37.1 %; MCH 27.1 pg (27.0-32.0); MCHC 31.9 g/dL (32.0-37.0); MCV 84.9 fL (80.0-97.0); Mean Platelet Volume 9.9 fL (9.5-12.2); Monocytes # (A) 0.41 X 10*3/uL (0.20-1.00); Monocytes % (A) 8.6 %; Neutrophils # (A) 2.15 X 10*3/uL (1.80-7.70); Neutrophils % (A) 45.3 %; Platelet Count 267 X 10*3/uL (140-440); RBC 4.36 X 10*6/uL (4.10-5.20); RDW 20.5 % (11.5-14.5); WBC 4.75 X 10*3/uL (4.50-10.00)
[2021-04-19 01:44] LABS: % Iron Saturation 18.12 (12.00-45.00)
[2021-04-19 01:52] LABS: Ferritin 50.4 ng/mL (10.0-291.0)
== END | disposition home or self-care (01) ==
LOC: LABWHC1 07:05
PROVIDERS: ATTEND Physician Assistant Medical
DX: K74.3 Primary biliary cirrhosis (principal)
CPT/HCPCS: 36415; 82728; 83540; 83550; 85025

== ENCOUNTER → 2021-05-20 | Outpatient (CLI) | payer OTHER ==
[2021-05-20 16:31] LABS: INR 0.96 (0.90-1.11); Prothrombin Time 10.5 sec (9.9-11.9)
[2021-05-20 18:05] LABS: T4, Free (Free Thyroxine) 1.06 ng/dL (0.800-1.800)
[2021-05-20 19:39] LABS: African American GFR (CKD) 89.6 (60.0-200.0); Albumin/Globulin Ratio 1.22 (1.60-3.17); Anion Gap 15.6 mmol/L (4.00-12.00); BUN/Creat Ratio 24.27 Ratio (12.00-20.00); Calcium 9.7 mg/dL (8.7-10.3); Carbon Dioxide 23.6 mmol/L (21.6-31.8); Globulin 3.3 g/dL (1.6-3.3); Non-African American GFR(CKD) 77.3 (60.0-200.0); Potassium 3.9 mmol/L (3.5-5.5); Total Bilirubin 0.3 mg/dL (0.30-1.20); Total Protein 7.3 g/dL (6.2-8.2)
== END | disposition home or self-care (01) ==
LOC: LABWHC1 10:07
PROVIDERS: ATTEND Nurse Practitioner
DX: K74.3 Primary biliary cirrhosis (principal)
CPT/HCPCS: 36415; 80053; 82105; 84439; 84443; 85610

== ENCOUNTER → 2021-06-18 | Outpatient (CLI) | payer OTHER ==
--- NOTE | 2021-06-19 09:45 | MM ---
Reason for exam: screening (asymptomatic). Last mammogram was performed 1 year ago. History: Patient is postmenopausal. Took hormonal contraceptives for 5 years. Took estrogen for 6 months. Took progesterone for 6 months. Taking other hormone for 6 months. Physical Findings: A clinical breast exam by your physician is recommended on an annual basis and results should be correlated with mammographic findings. MG 3D Screening Mammo W/Cad Bilateral CC and MLO view(s) were taken. Prior study comparison: June 13, 2020, bilateral MG 3d screening mammo w/cad. December 17, 2018, bilateral MG 3d screening mammo w/cad. There are scattered fibroglandular densities. There are benign appearing round calcifications bilaterally. Prominent left axillary lymph nodes now present. ASSESSMENT: Incomplete: need additional imaging evaluation, BI-RAD 0 RECOMMENDATION: Ultrasound of the left breast. [facility] will attempt to contact patient to return for ultrasound.
== END | disposition home or self-care (01) ==
LOC: RADMAMWWP 06:55
PROVIDERS: ATTEND Family Medicine
DX: Z12.31 Encounter for screening mammogram for malignant neoplasm of breast (principal); Z78.0 Asymptomatic menopausal state
CPT/HCPCS: 77063; 77067

== ENCOUNTER → 2021-07-02 | Outpatient (CLI) | payer OTHER ==
--- NOTE | 2021-07-02 09:40 | USB ---
Reason for exam: additional evaluation requested from abnormal screening. History: Patient is postmenopausal. Took hormonal contraceptives for 5 years. Took estrogen for 6 months. Took progesterone for 6 months. Taking other hormone for 6 months. Physical Findings: Nurse did not find any significant physical abnormalities on exam. US Breast Workup Limited LT Left limited breast ultrasound including focal area of concern, retroareolar and axilla demonstrates a 7mm lymph node at the axilla, a 8mm lymph node at the axilla, a 8mm lymph node at the axilla and a 7mm lymph node at the axilla. May be vaccine related, follow up in 3 months. These results were verbally communicated with the patient and result sheet given to the patient on 07/02/21. ASSESSMENT: Probably benign, BI-RAD 3 RECOMMENDATION: Ultrasound of the left breast in 3 months. Manage patient on a clinical basis.
== END | disposition home or self-care (01) ==
LOC: RADUSWWP 08:45
PROVIDERS: ATTEND Family Medicine
DX: R92.8 Other abnormal and inconclusive findings on diagnostic imaging of breast (principal); Z78.0 Asymptomatic menopausal state

== ENCOUNTER → 2021-09-23 | Outpatient (CLI) | payer OTHER ==
--- NOTE | 2021-09-23 09:03 | USB ---
Reason for exam: clinical finding. History: Patient is postmenopausal. Took hormonal contraceptives for 5 years. Took estrogen for 6 months. Took progesterone for 6 months. Taking other hormone for 6 months. Indicated problem(s): large axillary lymph nodes in the left breast. Physical Findings: Nurse did not find any significant physical abnormalities on exam. US Breast Axilla LT Left breast axilla ultrasound demonstrates a 0.6cm and 0.7cm lymph node at the axilla. These results were verbally communicated with the patient and result sheet given to the patient on 09/23/21. ASSESSMENT: Benign, BI-RAD 2 RECOMMENDATION: Return to routine screening mammogram schedule for both breasts.
== END | disposition home or self-care (01) ==
LOC: RADUSWWP 08:13
PROVIDERS: ATTEND Family Medicine
DX: R92.8 Other abnormal and inconclusive findings on diagnostic imaging of breast (principal); Z78.0 Asymptomatic menopausal state

== ENCOUNTER → 2021-10-16 | Outpatient (CLI) | payer OTHER ==
[2021-10-16 11:32] LABS: Chol/HDL Ratio 2.52 Ratio; LDL Cholesterol,Calculated 81.6 mg/dL (0.0-131.0); VLDL Calculation 11.36 mg/dL (5.00-40.00)
[2021-10-16 11:33] LABS: ALT 17 U/L (8-44); AST 42 U/L (13-35); African American GFR (CKD) 100.3 (60.0-200.0); Albumin 3.9 g/dL (3.8-4.9); Albumin/Globulin Ratio 1.09 (1.60-3.17); Alkaline Phosphatase 127 U/L (41-126); BUN/Creat Ratio 17.58 Ratio (12.00-20.00); Blood Urea Nitrogen 13.2 mg/dL (9.0-27.0); Carbon Dioxide 25.1 mmol/L (20.0-27.5); Chloride 103 mmol/L (96-109); Creatine Kinase 60 U/L (26-186); Globulin 3.6 g/dL (1.6-3.3); Glucose 98 mg/dL (70-110); Non-African American GFR(CKD) 86.5 (60.0-200.0); Potassium 3.8 mmol/L (3.5-5.5); Sodium 140 mmol/L (135-145); Total Protein 7.5 g/dL (6.2-8.2)
[2021-10-16 14:44] LABS: Basophils # (A) 0.04 X 10*3/uL (0.00-0.10); Basophils % (A) 0.8 %; Eosinophils # (A) 0.56 X 10*3/uL (0.04-0.35); Eosinophils % (A) 10.9 %; HCT 41.2 % (37.2-46.3); Lymphocytes # (A) 1.63 X 10*3/uL (0.90-5.00); Lymphocytes % (A) 31.7 %; MCH 31.5 pg (27.0-32.0); MCV 92.6 fL (80.0-97.0); Mean Platelet Volume 9.9 fL (9.5-12.2); Monocytes # (A) 0.47 X 10*3/uL (0.20-1.00); Monocytes % (A) 9.1 %; NRBC Per 100 WBC 0 /100 WBCS (0.0-0.0); Neutrophils # (A) 2.39 X 10*3/uL (1.80-7.70); Neutrophils % (A) 46.5 %; Platelet Count 220 X 10*3/uL (140-440); RBC 4.45 X 10*6/uL (4.10-5.20); RDW 13.9 % (11.5-14.5); WBC 5.14 X 10*3/uL (4.50-10.00)
== END | disposition home or self-care (01) ==
LOC: LABWHC1 07:00
PROVIDERS: ATTEND Physician Assistant Medical
DX: Z13.220 Encounter for screening for lipoid disorders (principal); Z13.228 Encounter for screening for other metabolic disorders; I10 Essential (primary) hypertension; E05.90 Thyrotoxicosis, unspecified without thyrotoxic crisis or storm; E66.9 Obesity, unspecified; E55.9 Vitamin D deficiency, unspecified
CPT/HCPCS: 36415; 80053; 80061; 82306; 82550; 84443; 85025

== ENCOUNTER → 2022-01-11 | Outpatient (CLI) | payer OTHER ==
[2022-01-11 18:36] LABS: African American GFR (CKD) 105.9 (60.0-200.0); Albumin 4.1 g/dL (3.8-4.9); Albumin/Globulin Ratio 1.35 (1.60-3.17); BUN/Creat Ratio 28.13 Ratio (12.00-20.00); Blood Urea Nitrogen 20.2 mg/dL (9.0-27.0); Calcium 9.7 mg/dL (8.7-10.3); Carbon Dioxide 24.4 mmol/L (20.0-27.5); Non-African American GFR(CKD) 91.3 (60.0-200.0); Potassium 3.7 mmol/L (3.5-5.5); Total Bilirubin 0.4 mg/dL (0.30-1.20); Total Protein 7.1 g/dL (6.2-8.2)
== END | disposition home or self-care (01) ==
LOC: LABWHC1 08:58
PROVIDERS: ATTEND Internal Medicine Gastroenterology
DX: K74.3 Primary biliary cirrhosis (principal)
CPT/HCPCS: 36415; 80053; 85025

== ENCOUNTER → 2022-04-17 | Outpatient (CLI) | payer OTHER ==
[2022-04-17 11:02] LABS: Basophils # (A) 0.03 X 10*3/uL (0.00-0.10); Basophils % (A) 0.6 %; Eosinophils # (A) 0.41 X 10*3/uL (0.04-0.35); HCT 40.7 % (37.2-46.3); Immature Grans, Automated 0.6 %; Lymphocytes # (A) 1.78 X 10*3/uL (0.90-5.00); Lymphocytes % (A) 34.6 %; MCH 31.5 pg (27.0-32.0); MCHC 34.4 g/dL (32.0-37.0); MCV 91.5 fL (80.0-97.0); Mean Platelet Volume 9.8 fL (9.5-12.2); Monocytes # (A) 0.44 X 10*3/uL (0.20-1.00); Monocytes % (A) 8.6 %; NRBC Per 100 WBC 0 /100 WBCS (0.0-0.0); Neutrophils # (A) 2.45 X 10*3/uL (1.80-7.70); Neutrophils % (A) 47.6 %; Platelet Count 226 X 10*3/uL (140-440); RBC 4.45 X 10*6/uL (4.10-5.20); RDW 13.5 % (11.5-14.5); WBC 5.14 X 10*3/uL (4.50-10.00)
[2022-04-17 11:32] LABS: ALT 19 U/L (8-44); AST 37 U/L (13-35); African American GFR (CKD) 92.9 (60.0-200.0); Albumin 4.1 g/dL (3.8-4.9); Albumin/Globulin Ratio 1.32 (1.60-3.17); Alkaline Phosphatase 147 U/L (41-126); BUN/Creat Ratio 18.25 Ratio (12.00-20.00); Blood Urea Nitrogen 14.6 mg/dL (9.0-27.0); Calcium 9.8 mg/dL (8.7-10.3); Carbon Dioxide 27.6 mmol/L (20.0-27.5); Chloride 102 mmol/L (96-109); Chol/HDL Ratio 2.61 Ratio; Globulin 3.1 g/dL (1.6-3.3); Glucose 95 mg/dL (70-110); LDL Cholesterol,Calculated 86.5 mg/dL (0.0-131.0); Non-African American GFR(CKD) 80.1 (60.0-200.0); Sodium 141 mmol/L (135-145); Total Protein 7.2 g/dL (6.2-8.2); VLDL Calculation 12.72 mg/dL (5.00-40.00)
== END | disposition home or self-care (01) ==
LOC: LABWHC1 07:05
PROVIDERS: ATTEND Physician Assistant Medical
DX: I10 Essential (primary) hypertension (principal); E05.90 Thyrotoxicosis, unspecified without thyrotoxic crisis or storm; E55.9 Vitamin D deficiency, unspecified; K74.3 Primary biliary cirrhosis; K21.9 Gastro-esophageal reflux disease without esophagitis
CPT/HCPCS: 36415; 80053; 80061; 82306; 84443; 85025

== ENCOUNTER 2022-04-24 11:26 | Emergency (ER) | payer OTHER ==
[2022-04-24 11:30] VITALS: TEMP 98.3
[2022-04-24 12:38] LABS: ALT 19 U/L (4-34); AST 40 U/L (14-36); African American GFR (CKD) >90 (>60 ml/min/1.73 sqM); Albumin 4.1 g/dL (3.5-5.0); Alkaline Phosphatase 157 U/L (38-126); Anion Gap 10 mmol/L; Blood Urea Nitrogen 18 mg/dL (7-17); Carbon Dioxide 28 mmol/L (22-30); Chloride 102 mmol/L (98-107); Glucose 103 mg/dL (74-99); Magnesium 1.8 mg/dL (1.6-2.3); Non-African American GFR(CKD) >90 (>60 ml/min/1.73 sqM); Potassium 3.6 mmol/L (3.5-5.1); Sodium 140 mmol/L (137-145); Total Bilirubin 0.8 mg/dL (0.2-1.3); Total Protein 7.1 g/dL (6.3-8.2)
--- NOTE | 2022-04-24 12:52 | XR ---
EXAMINATION TYPE: XR chest 2V DATE OF EXAM: 04/24/2022 COMPARISON: 05/24/2010 HISTORY: 61-year-old female with chest pain TECHNIQUE: PA and lateral views FINDINGS: Heart and lungs are normal in size. Aorta and pulmonary vasculature within normal limits. Some strand y atelectasis in the left base. No consolidation or pleural effusion. IMPRESSION: No acute cardiopulmonary process.
[2022-04-24 12:53] LABS: INR 0.9 (<1.2); Partial Thromboplastin Time 23.3 sec (22.0-30.0); Prothrombin Time 10.3 sec (9.0-12.0)
[2022-04-24 13:05] VITALS: RESP 18
[2022-04-24 13:07] LABS: Basophils % (A) 0 %; Eosinophils # (A) 0.3 k/uL (0-0.7); Eosinophils % (A) 5 %; HCT 41.3 % (34.0-46.0); HGB 14.1 gm/dL (11.4-16.0); Lymphocytes # (A) 1.8 k/uL (1.0-4.8); Lymphocytes % (A) 32 %; MCH 32.6 pg (25.0-35.0); MCHC 34.2 g/dL (31.0-37.0); MCV 95.2 fL (80.0-100.0); Mean Platelet Volume 7.5; Monocytes # (A) 0.3 k/uL (0-1.0); Monocytes % (A) 5 %; Neutrophils # (A) 3.2 k/uL (1.3-7.7); Neutrophils % (A) 55 %; Platelet Count 210 k/uL (150-450); RBC 4.33 m/uL (3.80-5.40); RDW 13.3 % (11.5-15.5); WBC 5.8 k/uL (3.8-10.6)
--- NOTE | 2022-04-24 14:35 | ED ---
General Adult HPI - General Chief complaint: Recheck/Abnormal Lab/Rx Stated complaint: High BP, light headedness Time Seen by Provider: 04/24/22 11:36 Source: patient, RN notes reviewed Mode of arrival: ambulatory Limitations: no limitations - History of Present Illness Initial comments: 7-year-old female presents emergency Department with chief complaint of hypertension. Patient states blood pressures and more elevated a recent. Patient states she's been monitoring. Patient's blood pressure typically minimally elevated in the morning states it's around 150 over 80s. Patient states she does have a follow-up appointment with her PCP O she was placed on will start now. Patient states she was and hydrochlorothiazide in which the cutting this and half. States that she's had some episodes of feeling lightheadedepisodes. She did have 1 episode of chest pressure but states it's not currently present. Patient denies any prior cardiac disease other than hypertension no prior hyperlipidemia she just had it checked. Patient denies any diaphoretic episodes other complaints. - Related Data Home Medications Medication Instructions Recorded Confirmed Fenofibrate [Lofibra] 160 mg PO DAILY 04/24/22 04/24/22 Ferrous Sulfate [Feosol] 325 mg PO DAILY 04/24/22 04/24/22 Lansoprazole 30 mg PO DAILY 04/24/22 04/24/22 Naproxen [Naprosyn] 500 mg PO DAILY 04/24/22 04/24/22 hydroCHLOROthiazide [Hydrodiuril] 50 mg PO DAILY 04/24/22 04/24/22 ursodioL [Ursodiol] 750 mg PO BID 04/24/22 04/24/22 Allergies Allergy/AdvReac Type Severity Reaction Status Date / Time amoxicillin Allergy Rash/Hives Verified 04/24/22 12:51 clarithromycin [From Biaxin] Allergy Rash/Hives Verified 04/24/22 12:51 Sulfa (Sulfonamide Allergy Rash/Hives Verified 04/24/22 12:51 Antibiotics) Review of Systems ROS Statement: Those systems with pertinent positive or pertinent negative responses have been documented in the HPI. ROS Other: All systems not noted in ROS Statement are negative. Past Medical History Past Medical History: Hypertension, Liver Disease, Thyroid Disorder Additional Past Medical History / Comment(s): PRIMARY BILIARY CHOLANGITIS History of Any Multi-Drug Resistant Organisms: None Reported Past Surgical History: Hysterectomy, Joint Replacement Additional Past Surgical History / Comment(s): COLONOSCOPY. ERCP. BILAT TKA Past Anesthesia/Blood Transfusion Reactions: No Reported Reaction Past Psychological History: Anxiety Smoking Status: Former smoker Past Alcohol Use History: None Reported Past Drug Use History: None Reported - Past Family History Mother Family Medical History: No Reported History General Exam Limitations: no limitations General appearance: alert, in no apparent distress Head exam: Present: atraumatic, normocephalic, normal inspection Eye exam: Present: normal appearance, PERRL, EOMI. Absent: scleral icterus, conjunctival injection, periorbital swelling ENT exam: Present: normal exam, mucous membranes moist Neck exam: Present: normal inspection, full ROM. Absent: tenderness, meningismus, lymphadenopathy Respiratory exam: Present: normal lung sounds bilaterally. Absent: respiratory distress, wheezes, rales, rhonchi, stridor Cardiovascular Exam: Present: regular rate, normal rhythm, normal heart sounds. Absent: systolic murmur, diastolic murmur, rubs, gallop, clicks GI/Abdominal exam: Present: soft, normal bowel sounds. Absent: distended, tenderness, guarding, rebound, rigid Course Vital Signs 04/24/22 04/24/22 11:27 13:00 Temperature 98.3 F Pulse Rate 82 85 Respiratory 20 18 Rate Blood Pressure 165/97 148/90 O2 Sat by Pulse 98 95 Oximetry Medical Decision Making - Medical Decision Making 7-year-old female presented for hypertension and lightheadedness. 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 She did recently see her PCP she understands risk of leaving and strict return parameters were provided. - Lab Data Result diagrams: 04/24/22 12:18 04/24/22 12:18 Lab Results 04/24/22 04/24/22 04/24/22 Range/Units 12:18 12:18 12:18 WBC 5.8 (3.8-10.6) k/uL RBC 4.33 (3.80-5.40) m/uL Hgb 14.1 (11.4-16.0) gm/dL Hct 41.3 (34.0-46.0) % MCV 95.2 (80.0-100.0) fL MCH 32.6 (25.0-35.0) pg MCHC 34.2 (31.0-37.0) g/dL RDW 13.3 (11.5-15.5) % Plt Count 210 (150-450) k/uL MPV 7.5 Neutrophils % 55 % Lymphocytes % 32 % Monocytes % 5 % Eosinophils % 5 % Basophils % 0 % Neutrophils # 3.2 (1.3-7.7) k/uL Lymphocytes # 1.8 (1.0-4.8) k/uL Monocytes # 0.3 (0-1.0) k/uL Eosinophils # 0.3 (0-0.7) k/uL Basophils # 0.0 (0-0.2) k/uL PT 10.3 (9.0-12.0) sec INR 0.9 (<1.2) APTT 23.3 (22.0-30.0) sec Sodium 140 (137-145) mmol/L Potassium 3.6 (3.5-5.1) mmol/L Chloride 102 (98-107) mmol/L Carbon Dioxide 28 (22-30) mmol/L Anion Gap 10 mmol/L BUN 18 H (7-17) mg/dL Creatinine 0.73 (0.52-1.04) mg/dL Est GFR (CKD-EPI)AfAm >90 (>60 ml/min/1.73 sqM) Est GFR (CKD-EPI)NonAf >90 (>60 ml/min/1.73 sqM) Glucose 103 H (74-99) mg/dL Calcium 10.0 (8.4-10.2) mg/dL Magnesium 1.8 (1.6-2.3) mg/dL Total Bilirubin 0.8 (0.2-1.3) mg/dL AST 40 H (14-36) U/L ALT 19 (4-34) U/L Alkaline Phosphatase 157 H (38-126) U/L Troponin I (0.000-0.034) ng/mL NT-Pro-B Natriuret Pep pg/mL Total Protein 7.1 (6.3-8.2) g/dL Albumin 4.1 (3.5-5.0) g/dL 04/24/22 04/24/22 Range/Units 12:18 12:18 WBC (3.8-10.6) k/uL RBC (3.80-5.40) m/uL Hgb (11.4-16.0) gm/dL Hct (34.0-46.0) % MCV (80.0-100.0) fL MCH (25.0-35.0) pg MCHC (31.0-37.0) g/dL RDW (11.5-15.5) % Plt Count (150-450) k/uL MPV Neutrophils % % Lymphocytes % % Monocytes % % Eosinophils % % Basophils % % Neutrophils # (1.3-7.7) k/uL Lymphocytes # (1.0-4.8) k/uL Monocytes # (0-1.0) k/uL Eosinophils # (0-0.7) k/uL Basophils # (0-0.2) k/uL PT (9.0-12.0) sec INR (<1.2) APTT (22.0-30.0) sec Sodium (137-145) mmol/L Potassium (3.5-5.1) mmol/L Chloride (98-107) mmol/L Carbon Dioxide (22-30) mmol/L Anion Gap mmol/L BUN (7-17) mg/dL Creatinine (0.52-1.04) mg/dL Est GFR (CKD-EPI)AfAm (>60 ml/min/1.73 sqM) Est GFR (CKD-EPI)NonAf (>60 ml/min/1.73 sqM) Glucose (74-99) mg/dL Calcium (8.4-10.2) mg/dL Magnesium (1.6-2.3) mg/dL Total Bilirubin (0.2-1.3) mg/dL AST (14-36) U/L ALT (4-34) U/L Alkaline Phosphatase (38-126) U/L Troponin I <0.012 (0.000-0.034) ng/mL NT-Pro-B Natriuret Pep 71 pg/mL Total Protein (6.3-8.2) g/dL Albumin (3.5-5.0) g/dL Disposition Clinical Impression: Hypertension, Lightheadedness Disposition: HOME SELF-CARE Condition: Stable Instructions (If sedation given, give patient instructions): Hypertension (ED) Additional Instructions: Please return to the Emergency Department if symptoms worsen or any other concerns. Is patient prescribed a controlled substance at d/c from ED?: No Referrals: Yoav El DO [Primary Care Provider] - 1-2 days Time of Disposition: 14:35
[2022-04-24 15:22] VITALS: BP 141/75; PULSE 66
== END 2022-04-24 15:20 | disposition home or self-care (01) ==
LOC: EC 11:26
DX: R42 Dizziness and giddiness (principal); I10 Essential (primary) hypertension; E07.9 Disorder of thyroid, unspecified; F41.9 Anxiety disorder, unspecified; Z87.891 Personal history of nicotine dependence; Z88.1 Allergy status to other antibiotic agents; Z88.2 Allergy status to sulfonamides; Z79.899 Other long term (current) drug therapy
CPT/HCPCS: 36415; 71046; 80053; 83735; 83880; 84484; 85025; 85610; 85730; 93005; 99284

== ENCOUNTER → 2022-07-09 | Outpatient (CLI) | payer OTHER ==
--- NOTE | 2022-07-10 08:43 | MM ---
Reason for Exam: Screening (asymptomatic). Last mammogram was performed 1 year(s) and 1 month(s) ago. Patient History: Menarche at age 14. First Full-Term at age 22. Left ovary removed at age 51. Right ovary removed at age 51. Hysterectomy at age 51. Postmenopausal. Estrogen for 6 months. Progesterone for 6 months. Patient used Hormonal Contraceptives for 5 years. Risk Values: Sherice 5 year model risk: 1.3%. NCI Lifetime model risk: 6.4%. Prior Study Comparison: 12/17/2018 Bilateral Screening Mammogram, [facility]. 06/13/2020 Bilateral Screening Mammogram, [facility]. 06/18/2021 Bilateral Screening Mammogram, [facility]. Tissue Density: There are scattered fibroglandular densities. Findings: Analyzed By CAD. There is no suspicious group of microcalcifications or new suspicious mass in either breast. Overall Assessment: Negative, BI-RAD 1 Management: Screening Mammogram of both breasts in 1 year. A clinical breast exam by your physician is recommended on an annual basis and results should be correlated with mammographic findings. Electronically signed and approved by: Aden Dixon M.D. Radiologis
== END | disposition home or self-care (01) ==
LOC: RADMAMWWP 06:46
PROVIDERS: ATTEND Family Medicine
DX: Z12.31 Encounter for screening mammogram for malignant neoplasm of breast (principal); Z78.0 Asymptomatic menopausal state; Z90.721 Acquired absence of ovaries, unilateral
CPT/HCPCS: 77063; 77067

== ENCOUNTER → 2022-09-03 | Outpatient (CLI) | payer OTHER ==
[2022-09-03 10:36] LABS: African American GFR (CKD) 85.7 (60.0-200.0); Albumin/Globulin Ratio 1.19 (1.60-3.17); Anion Gap 10.8 mmol/L (10.00-18.00); BUN/Creat Ratio 19.88 Ratio (12.00-20.00); Blood Urea Nitrogen 16.9 mg/dL (9.0-27.0); Calcium 9.9 mg/dL (8.7-10.3); Carbon Dioxide 28.9 mmol/L (20.0-27.5); Globulin 3.4 g/dL (1.6-3.3); Total Bilirubin 0.5 mg/dL (0.30-1.20); Total Protein 7.4 g/dL (6.2-8.2)
[2022-09-03 10:39] LABS: Basophils # (A) 0.04 X 10*3/uL (0.00-0.10); Basophils % (A) 0.8 %; Eosinophils # (A) 0.33 X 10*3/uL (0.04-0.35); Eosinophils % (A) 6.4 %; HGB 13.4 g/dL (12.0-15.0); Immature Grans, Automated 0.4 %; Lymphocytes # (A) 1.78 X 10*3/uL (0.90-5.00); Lymphocytes % (A) 34.4 %; MCH 31.2 pg (27.0-32.0); MCHC 33.5 g/dL (32.0-37.0); Mean Platelet Volume 9.6 fL (9.5-12.2); Monocytes % (A) 7.7 %; NRBC Per 100 WBC 0 /100 WBCS (0.0-0.0); Neutrophils # (A) 2.61 X 10*3/uL (1.80-7.70); Neutrophils % (A) 50.3 %; Platelet Count 207 X 10*3/uL (140-440); RDW 13.4 % (11.5-14.5); WBC 5.18 X 10*3/uL (4.50-10.00)
== END | disposition home or self-care (01) ==
LOC: LABWHC1 07:09
PROVIDERS: ATTEND Internal Medicine Gastroenterology
DX: K74.3 Primary biliary cirrhosis (principal)
CPT/HCPCS: 36415; 80053; 85025

== ENCOUNTER 2022-10-15 10:26 | Day surgery (SDC) | payer OTHER ==
[2022-10-15] MEDS ORDERED: LACTATED RINGERS 1,000 ML IV ONE (11:12)
[2022-10-15 11:13] VITALS: TEMP 98
[2022-10-15] MEDS ORDERED: PROPOFOL 10 MG/ML 20 ML VIAL IV ONE (12:27)
[2022-10-15] MEDS ORDERED: LIDOCAINE 2% INJ 20 MG/ML (2 ML VIAL) ONE (12:27)
--- NOTE | 2022-10-15 12:40 | P.PCN ---
Date of Procedure: 10/15/22 Procedure(s) Performed: BRIEF HISTORY: Patient is a 62-year-old pleasant female scheduled for an elective colonoscopy as a part of screening for colon cancer PROCEDURE PERFORMED: Colonoscopy. PREOPERATIVE DIAGNOSIS: Screening for colon cancer. IV sedation per Anesthesia. PROCEDURE: After informed consent was obtained, the patient, was brought into the endoscopy unit. IV sedation was administered by Anesthesia under continuous monitoring. Digital rectal examination was normal. Initially the Olympus CF-160 flexible video colonoscope was then inserted in the rectum, gradually advanced into the cecum without any difficulty. Careful examination was performed as the scope was gradually being withdrawn. Ileocecal valve and the appendiceal orifice were visualized and appeared normal. Prep was excellent. Mucosa of the cecum, ascending colon, transverse colon, descending colon, sigmoid colon, and rectum appeared normal. Retroflexion was performed in the rectum and no lesions were seen. The patient tolerated the procedure well. IMPRESSION: Normal-appearing colon from rectum to cecum no evidence of colorectal neoplasia . RECOMMENDATIONS: Findings of this examination were discussed with the patient as well as a family. She was advised to have a repeat screening colonoscopy in 10 years.
[2022-10-15 12:59] VITALS: BP 122/80; PULSE 69; RESP 16
== END 2022-10-15 13:21 | disposition home or self-care (01) ==
LOC: ORWHC2ENDO 10:26
PROVIDERS: ATTEND Internal Medicine Gastroenterology
DX: Z12.11 Encounter for screening for malignant neoplasm of colon (principal); I10 Essential (primary) hypertension; M19.90 Unspecified osteoarthritis, unspecified site; K21.9 Gastro-esophageal reflux disease without esophagitis; K74.3 Primary biliary cirrhosis; Z79.899 Other long term (current) drug therapy; Z86.11 Personal history of tuberculosis; Z88.2 Allergy status to sulfonamides; Z88.1 Allergy status to other antibiotic agents
CPT/HCPCS: 45378; J2704; J2001

== ENCOUNTER → 2023-07-13 | Outpatient (CLI) | payer OTHER ==
--- NOTE | 2023-07-14 15:39 | MM ---
Reason for Exam: Screening (asymptomatic). Last screening mammogram was performed 12 month(s) ago. Patient History: Menarche at age 14. First Full-Term at age 22. Left ovary removed at age 51. Right ovary removed at age 51. Hysterectomy at age 51. Postmenopausal. Estrogen for 6 months. Progesterone for 6 months. Patient used Hormonal Contraceptives for 5 years. Risk Values: Sherice 5 year model risk: 1.4%. NCI Lifetime model risk: 6.2%. Prior Study Comparison: 11/14/2016 Bilateral Screening Mammogram, [facility]. 11/19/2017 Bilateral Screening Mammogram, [facility]. 12/17/2018 Bilateral Screening Mammogram, [facility]. 06/13/2020 Bilateral Screening Mammogram, [facility]. 06/18/2021 Bilateral Screening Mammogram, [facility]. 07/09/2022 Bilateral MG 3D screening mammo w/cad, [facility]. Tissue Density: There are scattered fibroglandular densities. Findings: Analyzed By CAD. Pattern appears symmetrical and stable. No significant interval change is evident. Scattered benign calcifications are present bilaterally. No suspicious groups of microcalcifications, spiculated or lobular masses, architectural distortion or other secondary signs of malignancy are mammographically apparent. Overall Assessment: Benign, BI-RAD 2 Management: Screening Mammogram of both breasts in 1 year. A negative mammogram report should not preclude additional follow up of suspicious palpable abnormalities. Patient should continue monthly self breast exam. A clinical breast exam by your physician is recommended on an annual basis and results should be correlated with mammographic findings. Electronically signed and approved by: Renny Thomas D.O. Radiologis
== END | disposition home or self-care (01) ==
LOC: RADMAMWWP 06:47
PROVIDERS: ATTEND Family Medicine
DX: Z12.31 Encounter for screening mammogram for malignant neoplasm of breast (principal); Z78.0 Asymptomatic menopausal state; Z92.0 Personal history of contraception
CPT/HCPCS: 77063; 77067

== ENCOUNTER → 2023-10-24 | Outpatient (CLI) | payer OTHER ==
[2023-10-24 14:05] LABS: ALT 17 U/L (8-44); AST 36 U/L (13-35); Albumin/Globulin Ratio 1.29 Ratio (1.60-3.17); Alkaline Phosphatase 112 U/L (41-126); BUN/Creat Ratio 28.17 Ratio (12.00-20.00); Blood Urea Nitrogen 16.9 mg/dL (9.0-27.0); Calcium 9.7 mg/dL (8.7-10.3); Carbon Dioxide 25.7 mmol/L (21.6-31.8); Chloride 104 mmol/L (96-109); Globulin 3.1 g/dL (1.6-3.3); Glucose 90 mg/dL (70-110); Potassium 4.1 mmol/L (3.5-5.5); Sodium 141 mmol/L (135-145); Total Bilirubin 0.5 mg/dL (0.3-1.2); Total Protein 7.1 g/dL (6.2-8.2)
== END | disposition home or self-care (01) ==
LOC: LABWHC1 08:17
PROVIDERS: ATTEND Internal Medicine Gastroenterology
DX: K74.3 Primary biliary cirrhosis (principal)
CPT/HCPCS: 36415; 80053; 85025

== ENCOUNTER → 2024-04-16 | Outpatient (CLI) | payer OTHER ==
[2024-04-16 12:55] LABS: Basophils # (A) 0.02 X 10*3/uL (0.00-0.10); Basophils % (A) 0.4 %; Eosinophils # (A) 0.23 X 10*3/uL (0.04-0.35); Eosinophils % (A) 4.7 %; HCT 38.7 % (37.2-46.3); HGB 12.9 g/dL (12.0-15.0); Lymphocytes % (A) 34.8 %; MCH 30.6 pg (27.0-32.0); MCHC 33.3 g/dL (32.0-37.0); MCV 91.7 FL (80.0-97.0); Monocytes # (A) 0.48 X 10*3/uL (0.20-1.00); Monocytes % (A) 9.8 %; NRBC Per 100 WBC 0 X 10*3/uL (0.00-0.01); Neutrophils # (A) 2.43 X 10*3/uL (1.80-7.70); Neutrophils % (A) 49.9 %; Platelet Count 204 X 10*3/uL (140-440); RBC 4.22 X 10*6/uL (4.10-5.20); RDW 14.2 % (11.5-14.5); WBC 4.88 X 10*3/uL (4.50-10.00)
[2024-04-16 13:06] LABS: ALT 16 U/L (8-44); AST 32 U/L (13-35); Albumin/Globulin Ratio 1.29 Ratio (1.60-3.17); Alkaline Phosphatase 109 U/L (41-126); BUN/Creat Ratio 22.71 Ratio (12.00-20.00); Blood Urea Nitrogen 15.9 mg/dL (9.0-27.0); Calcium 9.9 mg/dL (8.7-10.3); Carbon Dioxide 27.6 mmol/L (21.6-31.8); Chloride 104 mmol/L (96-109); Globulin 3.1 g/dL (1.6-3.3); Glucose 96 mg/dL (70-110); Potassium 4.4 mmol/L (3.5-5.5); Sodium 141 mmol/L (135-145); Total Bilirubin 0.5 mg/dL (0.3-1.2); Total Protein 7.1 g/dL (6.2-8.2)
== END | disposition home or self-care (01) ==
LOC: LABWHC1 09:24
PROVIDERS: ATTEND Internal Medicine Gastroenterology
DX: K74.3 Primary biliary cirrhosis (principal)
CPT/HCPCS: 36415; 80053; 85025

== ENCOUNTER → 2024-07-14 | Outpatient (CLI) | payer OTHER ==
--- NOTE | 2024-07-16 21:41 | MM ---
Reason for Exam: Screening (asymptomatic). Last screening mammogram was performed 12 month(s) ago. Patient History: Menarche at age 14. First Full-Term at age 22. Left ovary removed at age 51. Right ovary removed at age 51. Hysterectomy at age 51. Postmenopausal. Estrogen for 6 months. Progesterone for 6 months. Patient used Hormonal Contraceptives for 5 years. Risk Values: Sherice 5 year model risk: 1.4%. NCI Lifetime model risk: 6.0%. Prior Study Comparison: 06/18/2021 Bilateral Screening Mammogram, [facility]. 07/09/2022 Bilateral MG 3D screening mammo w/cad, [facility]. 07/13/2023 Bilateral MG 3D screening mammo w/cad, [facility]. Tissue Density: There are scattered areas of fibroglandular density. Findings: Analyzed By CAD. The pattern is symmetrical. The pattern is stable. Several punctate calcifications are present bilaterally. No significant interval change. No suspicious groups of microcalcifications, spiculated or lobular masses, architectural distortion or other secondary signs of malignancy are mammographically apparent. Overall Assessment: Benign, BI-RAD 2 Management: Screening Mammogram of both breasts in 1 year. A negative mammogram report should not preclude additional follow up of suspicious palpable abnormalities. Patient should continue monthly self breast exam. A clinical breast exam by your physician is recommended on an annual basis and results should be correlated with mammographic findings. Note on Sherice scores and lifetime risk: 1. A Sherice score greater than 3% is considered moderate risk. If this is the case, consider specialist referral to assess eligibility for a risk reducing agent. 2. If overall lifetime risk for the development of breast cancer is 20% or higher, the patient may qualify for future screening with alternating mammogram and breast MRI. [facility], , 07/16/2024 9:38 PM. Electronically signed and approved by: Renny Thomas D.O. Radiologis
== END | disposition home or self-care (01) ==
LOC: RADMAMWWP 06:50
PROVIDERS: ATTEND Family Medicine
DX: Z12.31 Encounter for screening mammogram for malignant neoplasm of breast (principal); Z78.0 Asymptomatic menopausal state; Z90.722 Acquired absence of ovaries, bilateral; R92.323 Mammographic fibroglandular density, bilateral breasts
CPT/HCPCS: 77063; 77067

== ENCOUNTER → 2024-10-07 | Outpatient (CLI) | payer OTHER ==
--- NOTE | 2024-10-07 16:43 | XR ---
EXAMINATION TYPE: XR chest 2V DATE OF EXAM: 10/07/2024 4:34 PM COMPARISON: 04/24/2022 CLINICAL INDICATION: Female, 64 years old with history of R0602 SOB: Shortness of breath TECHNIQUE: XR chest 2V views of the chest are obtained. FINDINGS: Scattered senescent parenchymal changes noted. Hyperinflation compatible with COPD. No evidence for infiltrate. No evidence for atelectasis. Heart size is stable. Mediastinal structures are stable and grossly unremarkable. No evidence for hilar prominence. Degenerative changes dorsal spine. IMPRESSION: 1. No evidence for acute pulmonary disease. [facility], , 10/07/2024 4:41 PM
== END | disposition home or self-care (01) ==
LOC: RADXRYALE 16:21
PROVIDERS: ATTEND Physician Assistant Medical
DX: R06.02 Shortness of breath (principal)
CPT/HCPCS: 71046

== ENCOUNTER → 2025-01-18 | Outpatient (CLI) | payer OTHER ==
--- NOTE | 2025-01-18 11:41 | XR ---
EXAMINATION TYPE: XR chest 2V DATE OF EXAM: 01/18/2025 11:06 AM COMPARISON: Chest radiographs from 10/07/2024 CLINICAL INDICATION: Female, 64 years old with history of [id number] COUGH,SOB; [facility] TECHNIQUE: XR chest 2V Frontal and lateral views of the chest. FINDINGS: Lungs/Pleura: There is no evidence of pleural effusion, focal consolidation, or pneumothorax. Pulmonary vascularity: Unremarkable. Heart/mediastinum: Cardiomediastinal silhouette is unremarkable. Musculoskeletal: No acute osseous pathology. IMPRESSION: No acute cardiopulmonary disease/process. [facility], , 01/18/2025 11:39 AM
== END | disposition home or self-care (01) ==
LOC: RADXRYALE 10:52
PROVIDERS: ATTEND Physician Assistant Medical
DX: R05.9 Cough, unspecified (principal); R06.02 Shortness of breath
CPT/HCPCS: 71046